=== PATIENT | female | born 1995 | race African-American/Black ===

== ENCOUNTER 2017-01-22 23:33 | Emergency (ER) | payer SELFPAY ==
[~2017-01-22] VITALS: Ht 160 cm; Wt 76.7 kg
--- OUTSIDE RECORDS SUMMARY | 2017-01-22 23:39 | XMS REPORT | Clinical Summary ---
Author Author [facility] Address Unknown Phone Unavailable Drug Allergies and Adverse Reactions SNOMED Allergy Type Code Substance Substance RxNorm code Reaction Severity Date Identified Date Resolved Status Problems SNOMED CT Problem Onset Date Ended Date Status Medications RxNorm Code Medication Began Ended Dosage Frequency Route Units Status Diagnostic Results Lab Results LOINC Code Lab Test Result Abnormal Completed Date PREG TEST URINE NEG[0] N 10/27/2016 Encounters Date [facility]STD[facility]TB Vital Signs Date Height(cm) Weight(kg) Head Circ(cm) BP-Systolic BP-Diastolic Temperature(C) Respiration Heart Beat Oxygen(%) 10/27/2016 162.56 [id number]
[2017-01-22 23:41] VITALS: BP 117/91
[2017-01-23 00:07] LABS: BASOPHILS # (AUTO) 0.1 10^3/uL (0.0-0.1); BASOPHILS % (AUTO) 1 % (0-10); EOSINOPHILS # (AUTO) 0.3 10^3/uL (0.0-0.3); EOSINOPHILS % (AUTO) 4 % (0-10); LYMPHOCYTES # (AUTO) 2.3 X 10^3 (1.0-4.0); LYMPHOCYTES % (AUTO) 37 % (12-44); MEAN CORPUSCULAR HEMOGLOBIN 28 PG (25-34); MEAN CORPUSCULAR HGB CONC 33 G/DL (32-36); MEAN CORPUSCULAR VOLUME 85 FL (80-99); MONOCYTES # (AUTO) 0.6 X 10^3 (0.0-1.0); MONOCYTES % (AUTO) 10 % (0-12); NEUTROPHILS # (AUTO) 2.9 X 10^3 (1.8-7.8); NEUTROPHILS % (AUTO) 48 % (42-75); PLATELET COUNT 348 10^3/uL (130-400); RED BLOOD COUNT 4.27 10^6/uL (4.35-5.85); RED CELL DISTRIBUTION WIDTH 12.7 % (10.0-14.5); WHITE BLOOD COUNT 6.1 10^3/uL (4.3-11.0)
[2017-01-23 00:28] LABS: ALANINE AMINOTRANSFERASE 15 U/L (0-55); ALBUMIN 3.9 GM/DL (3.2-4.5); ANION GAP 10 MMOL/L (5-14); ASPARTATE AMINO TRANSFERASE 19 U/L (5-34); BILIRUBIN,TOTAL 0.4 MG/DL (0.1-1.0); BLOOD UREA NITROGEN 11 MG/DL (7-18); BUN/CREATININE RATIO 14; CARBON DIOXIDE 21 MMOL/L (21-32); CHLORIDE 108 MMOL/L (98-107); CREATININE SERUM 0.77 MG/DL (0.60-1.30); GFR ESTIMATED > 60; GLUCOSE 90 MG/DL (70-105); POTASSIUM 3.7 MMOL/L (3.6-5.0); SODIUM 139 MMOL/L (135-145); TOTAL PROTEIN 7.1 GM/DL (6.4-8.2)
[2017-01-23] MEDS ORDERED: LACTATED RINGERS 1,000 ML IV ONE (00:33)
[2017-01-23 01:00] LABS: BILIRUBIN,URINE NEGATIVE (NEGATIVE); KETONES,URINE NEGATIVE (NEGATIVE); LEUKOCYTE ESTERASE ,URINE 2+ (NEGATIVE); NITRITE,URINE NEGATIVE (NEGATIVE); PH,URINE 7 (5-9); PROTEIN,URINE 1+ (NEGATIVE); UROBILINOGEN,URINE 1 MG/DL (NORMAL)
[2017-01-23 01:35] LABS: CREATINE KINASE 291 U/L (29-168); MAGNESIUM 1.9 MG/DL (1.8-2.4)
[2017-01-23 01:41] LABS: TROPONIN I < 0.30 NG/ML (<0.30)
[2017-01-23] MEDS ORDERED: NITR-65 PO (01:56)
--- NOTE | 2017-01-23 01:56 | ED General ---
General Chief Complaint: Dizziness/Syncope Stated Complaint: HAS PASSED OUT 4 X THIS WK,UTI Nursing Triage Note: PT TO ED 5 PER W/C FROM WAITING ROOM. UPON CALLING PT BACK, PT "COLLAPSED" INTO W/C. REPORTS SHE'S PASSED OUT MULTIPLE TIMES OVER PAST WEEK. STATED SHE WAS DX W/ A "SEVERE UTI" AT [facility] LAST WEEK ET HAS BEEN TAKING MEDS BUT DENIES IMPROVEMENT. DENIES N/V/D. Source of Information: Patient History of Present Illness Time Seen by Provider: 23:50 Initial Comments PT ARRIVES VIA POV WITH A MULTITUDE OF FRIENDS--"COLLAPSED" INTO WHEELCHAIR NURSE WENT TO GET PT FROM WAITING ROOM, BUT DID NOT HAVE ACTUAL SYNCOPE PT STATES SHE HAS "PASSED OUT" X 4 THIS WEEK--EPISODES LAST A FEW SECONDS TO A MINUTE. NO POST-ICTAL SYMPTOMS WAS SEEN AT [facility] ON Sunday01/19/17 FOR THIS COMPLAINT AND WAS DX WITH UTI AND PLACED ON UNKNOWN ANTIBIOTIC. PT IS NOT HAVING ANY UTI SYMPTOMS NO OTHER TESTS WERE DONE AT [facility]. C/O GENERALIZED WEAKNESS NO NAUSEA/VOMITING--APPETITE IS GOOD AND HAS BEEN EATING NORMALLY NO PAIN ANYWHERE NO HEADACHE NO VISION CHANGES NO INCONTINENCE WITH EPISODES NO REPORTED SEIZURE ACTIVITY WITH EPISODES PT STATES THAT A FEW SECONDS TO A FEW MINUTES BEFORE SHE PASSES OUT, SHE WILL START TO FEEL SHORT OF BREATH, WILL GET CHEST PAIN WITH BURNING IN THE LEFT SHOULDER AND UPPER ARM AREA, AND WILL HAVE NUMBNESS FROM THE KNEES DOWN. NO INJURES FROM SYNCOPAL EPISODES THESE EPISODES ARE NOT ASSOCIATED WITH ANY PARTICULAR ACTIVITY NO PRIOR HISTORY OF SIMILAR NO RECENT TRAVEL BEYOND 1 1/2 HOURS PT IS [employer] STUDENT FROM [place] AND JUST STARTED SCHOOL LMP 12/26- 12/30. QUIT TAKING OCP'S 08/2016. PERIODS HAVE BEEN 1 1/2 WEEKS LATE EVERY MONTH SINCE THEN Allergies and Home Medications Allergies Coded Allergies: No Known Drug Allergies (Unverified , 01/22/17) Home Medications Nitrofurantoin Monohyd/M-Cryst 100 Mg Capsule, 100 MG PO BID, #20 Prescribed by: BEL PHILLIPS on 01/23/17 0156 Constitutional: see HPI, No diaphoresis, dizziness, weakness EENTM: no symptoms reported Respiratory: see HPI Cardiovascular: see HPI, chest pain, syncope Gastrointestinal: no symptoms reported Genitourinary: no symptoms reported Musculoskeletal: no symptoms reported Skin: no symptoms reported Psychiatric/Neurological: See HPI, Denies Headache Hematologic/Lymphatic: No Symptoms Reported Immunological/Allergic: no symptoms reported Past Dhsfzpd-Bsxjhw-Jzwzxf Hx Patient Social History Alcohol Use: Denies Use Recreational Drug Use: No Smoking Status: Never a Smoker Recent Foreign Travel: No Contact w/Someone Who Travel: No Recent Infectious Disease Expo: No Recent Hopitalizations: No Ebola Symptoms: Denies Symptoms Listed Physical Abuse: No Sexual Abuse: No Mistreated: No Fear: No Surgeries History of Surgeries: No Respiratory History of Respiratory Disorde: No Cardiovascular History of Cardiac Disorders: No Neurological History of Neurological Disord: No Reproductive System : No Female Reproductive Disorders: Denies Genitourinary History of Genitourinary Disor: No Gastrointestinal History of Gastrointestinal Di: No Musculoskeletal History of Musculoskeletal Dis: No Endocrine History of Endocrine Disorders: Yes (WAS TOLD BY HER DR BACK HOME SHE WAS DIABETIC A CHILD BUT NO TX) HEENT History of HEENT Disorders: No Cancer History of Cancer: No Did You Recieve Any Treatments: No Psychosocial History of Psychiatric Problem: No Suicide Risk Score: 0 Integumentary History of Skin or Integumenta: No Physical Exam Vital Signs Vital Sign - Last 12Hours 01/22/17 01/23/17 23:37 02:06 Temp 97.3 Pulse 76 Resp 16 B/P (MAP) 130/94 Pulse Ox 100 O2 Delivery Room Air Capillary Refill : General Appearance: No Apparent Distress, WD/WN HEENT: PERRL/EOMI, TMs Normal, Normal ENT Inspection, Pharynx Normal Neck: Full Range of Motion, Normal Inspection, Non Tender, Supple, No Carotid Bruit, No JVD Respiratory: Normal Breath Sounds, No Accessory Muscle Use, No Respiratory Distress Cardiovascular: Regular Rate, Rhythm, No Edema, No JVD, No Murmur, Normal Peripheral Pulses Gastrointestinal: Normal Bowel Sounds, No Organomegaly, No Pulsatile Mass, Non Tender, Soft Back: Normal Inspection Extremity: Normal Capillary Refill, Normal Inspection, Normal Range of Motion, Non Tender, No Calf Tenderness, No Pedal Edema Neurologic/Psychiatric: Alert, Oriented x3, No Motor/Sensory Deficits, Normal Mood/Affect, hide salter II-XII Norm as Tested, No Abnormal Cerebellar Tests Reflexes: 2+ Bicep (R), 2+ Bicep (L), 2+ Knee (R), 2+ Knee (L) Skin: Normal Color, Warm/Dry Progress/Results/Core Measures Results/Orders Lab Results Laboratory Tests Test 01/23/17 00:01 Range/Units White Blood Count 6.1 4.3-11.0 10^3/uL Red Blood Count 4.27 L 4.35-5.85 10^6/uL Hemoglobin 12.1 11.5-16.0 G/DL Hematocrit 36 35-52 % Mean Corpuscular Volume 85 80-99 FL Mean Corpuscular Hemoglobin 28 25-34 PG Mean Corpuscular Hemoglobin Concent 33 32-36 G/DL Red Cell Distribution Width 12.7 10.0-14.5 % Platelet Count 348 130-400 10^3/uL Mean Platelet Volume 9.0 7.4-10.4 FL Neutrophils (%) (Auto) 48 42-75 % Lymphocytes (%) (Auto) 37 12-44 % Monocytes (%) (Auto) 10 0-12 % Eosinophils (%) (Auto) 4 0-10 % Basophils (%) (Auto) 1 0-10 % Neutrophils # (Auto) 2.9 1.8-7.8 X 10^3 Lymphocytes # (Auto) 2.3 1.0-4.0 X 10^3 Monocytes # (Auto) 0.6 0.0-1.0 X 10^3 Eosinophils # (Auto) 0.3 0.0-0.3 10^3/uL Basophils # (Auto) 0.1 0.0-0.1 10^3/uL D-Dimer < 0.27 0.00-0.49 UG/ML Sodium Level 139 135-145 MMOL/L Potassium Level 3.7 3.6-5.0 MMOL/L Chloride Level 108 H 98-107 MMOL/L Carbon Dioxide Level 21 21-32 MMOL/L Anion Gap 10 5-14 MMOL/L Blood Urea Nitrogen 11 7-18 MG/DL Creatinine 0.77 0.60-1.30 MG/DL Estimat Glomerular Filtration Rate > 60 BUN/Creatinine Ratio 14 Glucose Level 90 70-105 MG/DL Calcium Level 9.0 8.5-10.1 MG/DL Magnesium Level 1.9 1.8-2.4 MG/DL Total Bilirubin 0.4 0.1-1.0 MG/DL Aspartate Amino Transf (AST/SGOT) 19 5-34 U/L Alanine Aminotransferase (ALT/SGPT) 15 0-55 U/L Alkaline Phosphatase 79 40-136 U/L Total Creatine Kinase 291 H 29-168 U/L Creatine Kinase MB 0.5 <6.6 NG/ML Troponin I < 0.30 <0.30 NG/ML B-Type Natriuretic Peptide < 10.0 <100.0 PG/ML Total Protein 7.1 6.4-8.2 GM/DL Albumin 3.9 3.2-4.5 GM/DL Serum Test, Qualitative NEGATIVE NEGATIVE My Orders Orders - BEL PHILLIPS K DO Saline Lock/Iv-Start (01/22/17 23:50) Orthostatic Vital Signs (01/22/17 23:50) Monitor-Rhythm Ecg Trace Only (01/22/17 23:50) Cbc With Automated Diff (01/22/17 23:50) Comprehensive Metabolic Panel (01/22/17 23:50) Drug Screen Stat (Urine) (01/22/17 23:50) Hcg,Qualitative Serum (01/22/17 23:50) Ua Culture If Indicated (01/22/17 23:50) Saline Lock/Iv-Start (01/23/17 00:33) Lactated Ringers (Lr 1000 Ml Iv Solution (01/23/17 00:33) Urine Culture (01/22/17 00:53) BNP (01/23/17 01:16) Creatine Kinase (01/23/17 01:16) Creatine Kinase Mb (01/23/17 01:16) Fibrin Degradation Products (01/23/17 01:16) Magnesium (01/23/17 01:16) Troponin I (01/23/17 01:16) Ekg Tracing (01/23/17 01:17) Medications Given in ED Vital Signs/I&O Progress Note : Progress Note UNEVENTFUL ER STAY NO SYMPTOMS DURING ER STAY ECG Initial ECG Impression Time: 01:20 Initial ECG Rate: 76 Initial ECG Rhythm: Normal Sinus Initial ECG Comparisson: No Previous ECG Available Departure Impression Impression: Primary Impression: UTI (urinary tract infection) Additional Impressions: Generalized weakness REPORTED HISTORY OF MULTIPLE SYNCOPAL EPISODES Chest pain Disposition: HOME, SELF-CARE Condition: Stable Departure-Patient Inst. Referrals: NO,LOCAL PHYSICIAN (PCP) Primary Care Physician AYLEEN ACOSTA MD Patient Instructions: Chest Pain (DC), Syncope (Fainting) (DC), Urinary Tract Infection, Adult (DC) Add. Discharge Instructions: HOME REST NO STRENOUS ACTIVITIES LOTS OF FLUIDS FOLLOW UP WITH [facility] TOMOR[facility] FOR FURTHER CARE RETURN TO ER IF SYMPTOMS WORSEN STOP CURRENT ANTIBIOTIC All discharge instructions reviewed with patient and/or family. Voiced understanding. Scripts Nitrofurantoin Monohyd/M-Cryst (Macrobid 100 mg Capsule) 100 Mg Capsule 100 MG PO BID, #20 CAP Prov: BEL PHILLIPS DO 01/23/17 BEL PHILLIPS DO Jan 23, 2017 01:56
== END 2017-01-23 02:06 | disposition home or self-care (01) ==
LOC: EDUNIT# 23:33 → ER 23:35
DX: N39.0 Urinary tract infection, site not specified (principal); R53.1 Weakness; R55 Syncope and collapse; R07.9 Chest pain, unspecified; E11.9 Type 2 diabetes mellitus without complications
CPT/HCPCS: 36415; 80306; 81000; 82550; 82553; 83735; 83880; 84484; 85025; 85379; 87088; 93005; 96360

== ENCOUNTER 2017-02-01 21:09 | Observation (INO) | payer OTHER ==
[~2017-02-01] VITALS: Ht 162.6 cm; Wt 77.2 kg
[~2017-02-01 21:09] MED LIST: NITR-65 PO
[2017-02-01] MEDS ORDERED: LACTATED RINGERS 1,000 ML IV ONE (21:17)
[2017-02-01 21:23] LABS: BASOPHILS % (AUTO) 1 % (0-10); EOSINOPHILS % (AUTO) 6 % (0-10); LYMPHOCYTES % (AUTO) 35 % (12-44); MEAN CORPUSCULAR HEMOGLOBIN 29 PG (25-34); MEAN CORPUSCULAR HGB CONC 34 G/DL (32-36); MEAN CORPUSCULAR VOLUME 85 FL (80-99); MONOCYTES % (AUTO) 11 % (0-12); NEUTROPHILS # (AUTO) 2.8 X 10^3 (1.8-7.8); NEUTROPHILS % (AUTO) 47 % (42-75); PLATELET COUNT 357 10^3/uL (130-400); RED BLOOD COUNT 4.36 10^6/uL (4.35-5.85); RED CELL DISTRIBUTION WIDTH 12.8 % (10.0-14.5)
[2017-02-01 21:24] LABS: EOSINOPHILS # (AUTO) 0.4 10^3/uL (0.0-0.3); LYMPHOCYTES # (AUTO) 2.1 X 10^3 (1.0-4.0); MONOCYTES # (AUTO) 0.7 X 10^3 (0.0-1.0)
[2017-02-01 21:28] LABS: PROTHROMBIN TIME PATIENT 13.6 SEC (12.2-14.7)
[2017-02-01 21:36] LABS: ALANINE AMINOTRANSFERASE 11 U/L (0-55); ALBUMIN 4.1 GM/DL (3.2-4.5); ALCOHOL < 10 MG/DL (<10); AMYLASE 66 U/L (25-125); ANION GAP 9 MMOL/L (5-14); ASPARTATE AMINO TRANSFERASE 17 U/L (5-34); BILIRUBIN,TOTAL 0.4 MG/DL (0.1-1.0); BLOOD UREA NITROGEN 12 MG/DL (7-18); BUN/CREATININE RATIO 16; CALCIUM 9.3 MG/DL (8.5-10.1); CARBON DIOXIDE 20 MMOL/L (21-32); CHLORIDE 110 MMOL/L (98-107); CREATINE KINASE 135 U/L (29-168); CREATININE SERUM 0.76 MG/DL (0.60-1.30); GFR ESTIMATED > 60; GLUCOSE 91 MG/DL (70-105); POTASSIUM 3.6 MMOL/L (3.6-5.0); SODIUM 139 MMOL/L (135-145); TOTAL PROTEIN 7.6 GM/DL (6.4-8.2)
--- NOTE | 2017-02-01 21:38 | ED General ---
General Chief Complaint: Neurological Problems Stated Complaint: SEIZURE Nursing Triage Note: per EMS pt was in her dorm and had an aprox 10 min witnessed seizure by room mate. EMS reports pt was seizing upon their arrival. Pt is alert and oriented upon arrival. Pt able to move self from EMS cot to ED cot. Pt reprots cp that she has had x 1month. Pt reports she started having seizures about a month ago and is not currently taking any medication for them. Source of Information: Patient, EMS, Old Records History of Present Illness Time Seen by Provider: 21:07 Initial Comments PT ARRIVES VIA EMS FROM [employer] [facility] ( WITH ROOMMATE ACCOMPANYING HER IN THE AMBULANCE, ADDITIONALLY 8 -12 OF HER FRIENDS AT ANY ONE TIME ARE IN WAITING ROOM WELL) PT WAS DANCING AND FELT WEAK AND NUMB FROM THE KNEES DOWN AND SAT DOWN AND PASSED OUT AND BEGAN HAVING A "SEIZURE" --REPORTEDLY, LASTED 10 MINUTES EMS REPORTS SHE WAS SHAKING FOR APPROXIMATELY A MINUTE OR TWO ON THEIR ARRIVAL, AND WAS DROWSY UNTIL 2 MINUTES PRIOR TO ARRIVAL AND IS BACK TO NORMAL NOW. NO INJURY DID NOT BITE TONGUE NO INCONTINENCE NO HEADACHE NO VISION CHANGES NO PARESTHESIAS OR MOTOR DEFICITS NO NAUSEA/VOMITING NO PALPITATIONS NO SHORTNESS OF BREATH NO RECENT TRAVEL BEYOND 1 1/2 HOURS NO RECENT ILLNESS, FEVER, TICK/MOSQUITO BITES, ETC. PT IS A [employer] STUDENT FROM [place] AND JUST STARTED SCHOOL PT STATES THIS IS THE 7TH EPISODE IN THE LAST MONTH--STATES "FIRST I WAS JUST PASSING OUT AND NOW I'M STARTING TO SHAKE" PT STATES SHE HAS BEEN HAVING CONSTANT CHEST PAIN FOR THE LAST MONTH--NOTHING WORSENS OR IMPROVES PAIN, AND PAIN DOES NOT GO AWAY THESE SYMPTOMS ARE NOT ASSOCIATED WITH ANY PARTICULAR ACTIVITY PT HAS NOT HAD ANY INJURIES FROM ANY OF THESE EPISODES PT WAS SEEN HERE 01/22/17 FOR SIMILAR. AND HAD BEEN TO [facility]ICK CARE A FEW DAYS PRIOR AND DX WITH UTI, WAS PLACED ON UNKNOWN ANTIBIOTIC--SATES SHE FINISHED IT A COUPLE OF DAYS AGO--DENIES HAVING ANY SYMPTOMS OF UTI) STATES EPISODES ARE THE SAME EVERY TIME--WILL START FEELING NUMBNESS FROM THE KNEES DOWN BEFORE SHE PASSES OUT ( ON PREVIOUS VISIT 01/22/17, SHE HAD REPORTED THAT SHE WOULD FEEL SHORT OF BREATH AND THEN GET CHEST PAIN AND BURNING IN HER LEFT SHOULDER AND UPPER ARM AREA IMMEDIATELY PRIOR TO THESE EPISODES, BUT DOES NOT MENTION ANY OF THESE OTHER SYMPTOMS TONIGHT) PT STATES SHE WAS SEEN AT [facility] FOR THESE SYMPTOMS, AND WAS TOLD SHE "HAD A SLOW HEART BEAT" AND "THEY DID AN ULTRASOUND ON HER HEART" AT THE [facility] AND WAS TOLD SHE "HAD AN ABNORMALITY ON HER HEART" AND WERE GOING TO REFER HER TO SOMEONE IN [place]. LMP 12/26/16--QUIT TAKING OCP'S 08/2016 AND PERIODS HAVE BEEN 1 1/2 WEEKS LATE EVER SINCE THEN. [employer] STUDENT Allergies and Home Medications Allergies Coded Allergies: No Known Drug Allergies (Unverified , 01/22/17) Home Medications Nitrofurantoin Monohyd/M-Cryst 100 Mg Capsule, 100 MG PO BID, #20 Prescribed by: BEL PHILLIPS on 01/23/17 0156 Constitutional: see HPI EENTM: no symptoms reported Respiratory: no symptoms reported Cardiovascular: see HPI, chest pain, No edema, No palpitations, syncope, No vascular heart diseas Gastrointestinal: no symptoms reported Genitourinary: no symptoms reported : No LMP: Dec 26, 2016 Musculoskeletal: no symptoms reported Skin: no symptoms reported Psychiatric/Neurological: See HPI, Denies Headache, Denies Numbness, Denies Paresthesia, Seizure, Denies Tingling, Denies Tremors, Denies Weakness, Other ( NO POST-ICTAL SIGNS/SYMPTOMS ON ARRIVAL TO ER) Hematologic/Lymphatic: No Symptoms Reported Immunological/Allergic: no symptoms reported Past Wxlpffc-Dmapqk-Gvebgk Hx Patient Social History Alcohol Use: Denies Use Recreational Drug Use: No Smoking Status: Never a Smoker Recent Foreign Travel: No Contact w/Someone Who Travel: No Recent Infectious Disease Expo: No Recent Hopitalizations: No Physical Abuse: No Sexual Abuse: No Mistreated: No Fear: No Surgeries History of Surgeries: No Respiratory History of Respiratory Disorde: No Cardiovascular History of Cardiac Disorders: No Neurological History of Neurological Disord: No Reproductive System : No Last Menstrual Period: Dec 26, 2016 Female Reproductive Disorders: Menstrual Problems Genitourinary History of Genitourinary Disor: No Gastrointestinal History of Gastrointestinal Di: No Musculoskeletal History of Musculoskeletal Dis: No Endocrine History of Endocrine Disorders: Yes (WAS TOLD BY HER BACK HOME SHE WAS DIABETIC A CHILD BUT NO TX) HEENT History of HEENT Disorders: No Cancer History of Cancer: No Did You Recieve Any Treatments: No Psychosocial History of Psychiatric Problem: No Suicide Risk Score: 1 Integumentary History of Skin or Integumenta: No Blood Transfusions History of Blood Disorders: No Physical Exam Vital Signs Vital Sign - Last 12Hours 02/01/17 02/01/17 21:10 22:58 Temp 98.2 Pulse 79 Resp 20 B/P (MAP) 116/86 Pulse Ox 98 O2 Delivery Room Air Capillary Refill : General Appearance: No Apparent Distress, WD/WN, Other (DOES NOT APPEAR POST- ICTAL ) Eyes: Bilateral Eye Normal Inspection, Bilateral Eye PERRL, Bilateral Eye EOMI HEENT: PERRL/EOMI, TMs Normal, Normal ENT Inspection, Pharynx Normal, Other ( NO INTRA-ORAL INJURY) Neck: Full Range of Motion, Normal Inspection, Non Tender, Supple Respiratory: Chest Non Tender, Normal Breath Sounds, No Accessory Muscle Use, No Respiratory Distress Cardiovascular: Regular Rate, Rhythm, No Edema, No Gallop, No JVD, No Murmur, Normal Peripheral Pulses Gastrointestinal: Normal Bowel Sounds, No Organomegaly, No Pulsatile Mass, Non Tender, Soft Back: Normal Inspection, No CVA Tenderness, No Vertebral Tenderness Extremity: Normal Capillary Refill, Normal Inspection, Normal Range of Motion, Non Tender, No Calf Tenderness, No Pedal Edema Neurologic/Psychiatric: Alert, Oriented x3, No Motor/Sensory Deficits, Normal Mood/Affect (EXCEPT SOMEWHAT DRAMATIC. ), shirt finisher II-XII Norm as Tested, No Abnormal Cerebellar Tests Reflexes: 2+ Bicep (R), 2+ Bicep (L), 2+ Knee (R), 2+ Knee (L) Skin: Normal Color, Warm/Dry, Tattoos/Piercings (TATTOOS), Other (NO EXTERNAL EVIDENCE OF TRAUMA ANYWHERE) Progress/Results/Core Measures Results/Orders Lab Results Laboratory Tests Test 02/01/17 21:08 02/01/17 22:29 Range/Units White Blood Count 6.0 4.3-11.0 10^3/uL Red Blood Count 4.36 4.35-5.85 10^6/uL Hemoglobin 12.5 11.5-16.0 G/DL Hematocrit 37 35-52 % Mean Corpuscular Volume 85 80-99 FL Mean Corpuscular Hemoglobin 29 25-34 PG Mean Corpuscular Hemoglobin Concent 34 32-36 G/DL Red Cell Distribution Width 12.8 10.0-14.5 % Platelet Count 357 130-400 10^3/uL Mean Platelet Volume 9.0 7.4-10.4 FL Neutrophils (%) (Auto) 47 42-75 % Lymphocytes (%) (Auto) 35 12-44 % Monocytes (%) (Auto) 11 0-12 % Eosinophils (%) (Auto) 6 0-10 % Basophils (%) (Auto) 1 0-10 % Neutrophils # (Auto) 2.8 1.8-7.8 X 10^3 Lymphocytes # (Auto) 2.1 1.0-4.0 X 10^3 Monocytes # (Auto) 0.7 0.0-1.0 X 10^3 Eosinophils # (Auto) 0.4 H 0.0-0.3 10^3/uL Basophils # (Auto) 0.0 0.0-0.1 10^3/uL Prothrombin Time 13.6 12.2-14.7 SEC INR Comment 1.0 0.8-1.4 Activated Partial Thromboplast Time 24 24-35 SEC Sodium Level 139 135-145 MMOL/L Potassium Level 3.6 3.6-5.0 MMOL/L Chloride Level 110 H 98-107 MMOL/L Carbon Dioxide Level 20 L 21-32 MMOL/L Anion Gap 9 5-14 MMOL/L Blood Urea Nitrogen 12 7-18 MG/DL Creatinine 0.76 0.60-1.30 MG/DL Estimat Glomerular Filtration Rate > 60 BUN/Creatinine Ratio 16 Glucose Level 91 70-105 MG/DL Calcium Level 9.3 8.5-10.1 MG/DL Magnesium Level 2.0 1.8-2.4 MG/DL Total Bilirubin 0.4 0.1-1.0 MG/DL Aspartate Amino Transf (AST/SGOT) 17 5-34 U/L Alanine Aminotransferase (ALT/SGPT) 11 0-55 U/L Alkaline Phosphatase 85 40-136 U/L Total Creatine Kinase 135 29-168 U/L Creatine Kinase MB 0.4 <6.6 NG/ML Troponin I < 0.30 <0.30 NG/ML Total Protein 7.6 6.4-8.2 GM/DL Albumin 4.1 3.2-4.5 GM/DL Amylase Level 66 25-125 U/L TSH [place] Testing 0.68 0.35-4.94 UIU/ML Serum Test, Qualitative NEGATIVE NEGATIVE Acetaminophen Level < 10 L 10-30 UG/ML Serum Alcohol < 10 <10 MG/DL Urine Color YELLOW Urine Clarity SLIGHTLY CLOUDY Urine pH 6 5-9 Urine Specific Lena 1.025 H 1.016-1.022 Urine Protein 2+ H NEGATIVE Urine Glucose (UA) NEGATIVE NEGATIVE Urine Ketones NEGATIVE NEGATIVE Urine Nitrite NEGATIVE NEGATIVE Urine Bilirubin NEGATIVE NEGATIVE Urine Urobilinogen NORMAL NORMAL MG/DL Urine Leukocyte Esterase 3+ H NEGATIVE Urine RBC (Auto) NEGATIVE NEGATIVE Urine RBC NONE /HPF Urine WBC 10-25 H /HPF Urine Squamous Epithelial Cells 5-10 /HPF Urine Crystals NONE /LPF Urine Bacteria MODERATE H /HPF Urine Casts NONE /LPF Urine Mucus MODERATE H /LPF Urine Culture Indicated YES Urine Opiates Screen NEGATIVE NEGATIVE Urine Oxycodone Screen NEGATIVE NEGATIVE Urine Methadone Screen NEGATIVE NEGATIVE Urine Propoxyphene Screen NEGATIVE NEGATIVE Urine Barbiturates Screen NEGATIVE NEGATIVE Ur Tricyclic Antidepressants Screen NEGATIVE NEGATIVE Urine Phencyclidine Screen NEGATIVE NEGATIVE Urine Amphetamines Screen NEGATIVE NEGATIVE Urine Methamphetamines Screen NEGATIVE NEGATIVE Urine Benzodiazepines Screen NEGATIVE NEGATIVE Urine Cocaine Screen NEGATIVE NEGATIVE Urine Cannabinoids Screen NEGATIVE NEGATIVE My Orders Orders - JACQUELINE,BEL K DO Accucheck Stat ONCE (02/01/17 21:17) Saline Lock/Iv-Start (02/01/17 21:17) Ekg Tracing (02/01/17 21:17) Monitor-Rhythm Ecg Trace Only (02/01/17 21:17) Ct Head Wo (02/01/17 21:17) Acetaminophen (02/01/17 21:17) Alcohol (02/01/17 21:17) Amylase (02/01/17 21:17) Cbc With Automated Diff (02/01/17 21:17) Comprehensive Metabolic Panel (02/01/17 21:17) Creatine Kinase (02/01/17 21:17) Creatine Kinase Mb (02/01/17 21:17) Drug Screen Stat (Urine) (02/01/17 21:17) Hcg,Qualitative Serum (02/01/17 21:17) Magnesium (02/01/17 21:17) Protime With Inr (02/01/17 21:17) Partial Thromboplastin Time (02/01/17 21:17) Thyroid Analyzer (02/01/17 21:17) Troponin I (02/01/17 21:17) Ua Culture If Indicated (02/01/17 21:17) Chest 1 View, Ap/Pa Only (02/01/17 21:17) Saline Lock/Iv-Start (02/01/17 21:17) Lactated Ringers (Lr 1000 Ml Iv Solution (02/01/17 21:17) Urine Culture (02/01/17 22:29) Medications Given in ED Current Medications Medications Dose Ordered Sig/Baldo Route Start Time Stop Time Status Last Admin Dose Admin Lactated Ringer's 1,000 ml @ 0 mls/hr Q0M ONCE IV 02/01/17 21:17 02/01/17 21:19 DC 02/01/17 21:26 0 MLS/HR Vital Signs/I&O Vital Sign - Last 12Hours 02/01/17 02/01/17 21:10 22:58 Temp 98.2 Pulse 79 72 Resp 20 18 B/P (MAP) 116/86 Pulse Ox 98 O2 Delivery Room Air Intake and Output 02/02/17 00:00 Intake Total 200 ml Balance 200 ml Progress Note : Progress Note UNEVENTFUL ER STAY ECG Initial ECG Impression Time: 21:20 Initial ECG Rate: 74 Initial ECG Rhythm: Normal Sinus Initial ECG Impression: Normal Initial ECG Comparisson: No Previous ECG Available Diagnostic Imaging Comments CT HEAD--NO ACUTE PROCESS, PER RADIOLOGIST REPORT @ 2219 CXR--NO ACUTE PROCESS, PER RADIOLOGIST REPORT @ 2304 Reviewed: Reviewed by Me Departure Communication (Admissions) Progress Notes 2204--SPOKE WITH DR. COELLO, ACCEPTS PT FOR ADMIT Impression Impression: Primary Impression: SEIZURE VS SYNCOPE Additional Impressions: Chest pain UTI (urinary tract infection) Disposition: ADMITTED INPATIENT Condition: Stable Admissions Decision to Admit Reason: Admit from ER (General) Decision to Admit/Date: Feb 01, 2017 Time/Decision to Admit Time: 22:05 Departure-Patient Inst. Referrals: NO,LOCAL PHYSICIAN (PCP/Family) Primary Care Physician BEL PHILLIPS DO Feb 01, 2017 21:38
[2017-02-01 21:39] LABS: ACETAMINOPHEN < 10 UG/ML (10-30)
[2017-02-01 21:55] LABS: TROPONIN I < 0.30 NG/ML (<0.30)
--- NOTE | 2017-02-01 22:11 | Diagnostic Imaging Report ---
PROCEDURE: CT head without contrast. TECHNIQUE: Multiple contiguous axial images were obtained through the brain without the use of intravenous contrast. INDICATION: 21-year-old female presents with seizure COMPARISONS: None FINDINGS: Midline structures are not displaced. Lateral, third, and fourth ventricles are normal in size, shape and anatomic position. There is no evidence of mass, mass effect, hydrocephalus or hemorrhage. Mobley-white differentiation is normal. There is no sulcal effacement. There are no abnormal extra-axial fluid collections or hemorrhage. Basilar cisterns appear normal. Sinuses, orbits and mastoid air cells are normal. Bone windows show no calvarial changes. IMPRESSION: Unremarkable nonenhanced CT brain. Given the patient's symptomatology, perhaps an MRI may be of further value. Dictated by: Dictated on workstation # [id number]
--- NOTE | 2017-02-01 22:22 | Diagnostic Imaging Report ---
INDICATION: 21-year-old female with seizure activity COMPARISON: None FINDINGS: Single view of the chest shows normal heart, pulmonary vasculature, pleura and diaphragms with no focal opacities. Soft tissues and bony thorax are normal. IMPRESSION: No acute cardiopulmonary changes. Dictated by: Dictated on workstation # [id number]
[2017-02-01 22:36] LABS: BILIRUBIN,URINE NEGATIVE (NEGATIVE); KETONES,URINE NEGATIVE (NEGATIVE); LEUKOCYTE ESTERASE ,URINE 3+ (NEGATIVE); NITRITE,URINE NEGATIVE (NEGATIVE); PH,URINE 6 (5-9); PROTEIN,URINE 2+ (NEGATIVE); UROBILINOGEN,URINE NORMAL (NORMAL)
[2017-02-01 23:40] VITALS: BP 112/83
[2017-02-02] VITALS (18 sets, daily range): BP systolic 96–126; BP diastolic 63–91
[2017-02-02] MEDS ORDERED: LACTATED RINGERS 1,000 ML IV ONE (00:17)
[2017-02-02] MEDS ORDERED: LACTATED RINGERS 1,000 ML IV SCH (00:30)
[2017-02-02] MEDS: LACTATED RINGERS 1,000 ML IV SCH ×2 (00:44→07:19)
[2017-02-02] MEDS ORDERED: LEVOFLOXACIN 500 MG TAB (LEVAQUIN) ONE (00:52)
[2017-02-02] MEDS ORDERED: LORazepam INJ 2 MG/ML (ATIVAN) VIAL IVP PRN (01:00)
[2017-02-02 04:08] LABS: BASOPHILS % (AUTO) 1 % (0-10); EOSINOPHILS # (AUTO) 0.4 10^3/uL (0.0-0.3); EOSINOPHILS % (AUTO) 5 % (0-10); LYMPHOCYTES # (AUTO) 2.6 X 10^3 (1.0-4.0); LYMPHOCYTES % (AUTO) 39 % (12-44); MEAN CORPUSCULAR HEMOGLOBIN 29 PG (25-34); MEAN CORPUSCULAR HGB CONC 34 G/DL (32-36); MEAN CORPUSCULAR VOLUME 85 FL (80-99); MEAN PLATELET VOLUME 9.5 FL (7.4-10.4); MONOCYTES # (AUTO) 0.5 X 10^3 (0.0-1.0); MONOCYTES % (AUTO) 7 % (0-12); NEUTROPHILS # (AUTO) 3.3 X 10^3 (1.8-7.8); NEUTROPHILS % (AUTO) 49 % (42-75); PLATELET COUNT 339 10^3/uL (130-400); RED BLOOD COUNT 4.01 10^6/uL (4.35-5.85); RED CELL DISTRIBUTION WIDTH 12.8 % (10.0-14.5); WHITE BLOOD COUNT 6.8 10^3/uL (4.3-11.0)
[2017-02-02 04:24] LABS: ALANINE AMINOTRANSFERASE 10 U/L (0-55); ALBUMIN 3.5 GM/DL (3.2-4.5); ANION GAP 10 MMOL/L (5-14); ASPARTATE AMINO TRANSFERASE 14 U/L (5-34); BILIRUBIN,TOTAL 0.6 MG/DL (0.1-1.0); BLOOD UREA NITROGEN 10 MG/DL (7-18); BUN/CREATININE RATIO 15; CALCIUM 8.7 MG/DL (8.5-10.1); CARBON DIOXIDE 19 MMOL/L (21-32); CHLORIDE 109 MMOL/L (98-107); CREATININE SERUM 0.68 MG/DL (0.60-1.30); GFR ESTIMATED > 60; GLUCOSE 86 MG/DL (70-105); MAGNESIUM 1.7 MG/DL (1.8-2.4); PHOSPHORUS 3.8 MG/DL (2.3-4.7); POTASSIUM 3.5 MMOL/L (3.6-5.0); SODIUM 138 MMOL/L (135-145); TOTAL PROTEIN 6.5 GM/DL (6.4-8.2)
--- NOTE | 2017-02-02 09:03 | History & Physical-Hospitalist ---
HPI History of Present Illness: HPI/Chief Complaint 21 YO BF WITH 1 MONTH HX OF EPISODES OF LEGS GOING NUMB THEN SYNCOPE. ASSOCIATED WITH CP. NO PREVIOUS SIMILAR HX. STARTED SCHOOL HERE at [employer] last year but gives a history of just starting. Also gave a history of being seen at the [facility] but was not. Has not been seen seen last semester and described episodes of shaking and near syncope at that time. Source: patient, old records Exam Limitations: no limitations Date Seen 02/02/17 Time Seen by Provider: 09:00 Attending Physician Ashley Acosta MD PCP No,Local Physician Referring Physician DAVE Date of Admission Feb 01, 2017 at 10:47 pm Home Medications & Allergies Home Medications Reviewed patient Home Medication Reconciliation Form Allergies Allergies Coded Allergies No Known Drug Allergies (Unverified01/22/17) Past Lzkjqkn-Sedpjz-Zwxvgy Hx Patient Social History Marrital Status: single Employed/Student: student, full-time Alcohol Use: Denies Use Recreational Drug Use: No Smoking Status: Never a Smoker Physical Abuse Screen: No Sexual Abuse: No Recent Foreign Travel: No Contact w/other who traveled: No Recent Hopitalizations: No Recent Infectious Disease Expo: No Seasonal Allergies Seasonal Allergies: Yes Surgeries No Respiratory No Cardiovascular No Neurological No Reproductive System : No Last Menstrual Period: Dec 26, 2016 Female Reproductive Disorders: Menstrual Problems Genitourinary No Gastrointestinal No Musculoskeletal No Endocrine History of Endocrine Disorders: Yes (WAS TOLD BY HER DR BACK HOME SHE WAS DIABETIC A CHILD BUT NO TX) HEENT History of HEENT Disorders: No Cancer No Did You Recieve Any Treatments: No Psychosocial History of Psychiatric Problem: No Integumentary History of Skin or Integumenta: No Blood Transfusions History of Blood Disorders: No Family Medical History Significant Family History: No Pertinent Family Hx Family Hx: Cardiovascular disease 19 MOTHER Diabetes mellitus 19 MOTHER Hypertension 19 MOTHER Review of Systems Constitutional: no symptoms reported EENTM: no symptoms reported Respiratory: no symptoms reported Cardiovascular: chest pain Gastrointestinal: no symptoms reported Genitourinary: frequency Musculoskeletal: muscle twitching Skin: no symptoms reported Psychiatric/Neurological: Numbness, Paresthesia (lower legs), Tingling Physical Exam Physical Exam Vital Signs Vital Sign - Last 12Hours 02/01/17 02/01/17 21:10 22:58 Temp 98.2 Pulse 79 Resp 20 B/P (MAP) 116/86 Pulse Ox 98 O2 Delivery Room Air Capillary Refill : General Appearance: No Apparent Distress, WD/WN Respiratory: Lungs Clear, Normal Breath Sounds, No Accessory Muscle Use, No Respiratory Distress Cardiovascular: Regular Rate, Rhythm, No Gallop, No Murmur Gastrointestinal: Non Tender, Soft Extremity: Non Tender, No Calf Tenderness Neurologic/Psychiatric: Alert, Oriented x3, No Motor/Sensory Deficits, Normal Mood/Affect, Other (gait and neuro exam normal per nursing) Skin: Warm/Dry Results Results/Procedures Lab Laboratory Tests 02/01/17 21:08 02/02/17 03:20 Assessment/Plan Admission Diagnosis 1. Possible new onset seizures 2.CP - 3.syncope Plan - EEG, Echo, d-dimer Copy Copies To 1: ASHLEY ACOSTA MD Clinical Quality Measures DVT/VTE Risk/Contraindication: RFS Level Per Nursing on Admit: 0=No Risk/No VTE PPX ASHLEY ACOSTA MD Feb 02, 2017 09:03
[2017-02-02] MEDS ORDERED: KCL 20 MEQ TAB (K-DUR) PO NR (09:12)
[2017-02-02] MEDS: MAGNESIUM 1 GM/100 ML IVPB 100 ML IV SCH ×2 (10:32→11:49)
[2017-02-02] MEDS ORDERED: LEVOFLOXACIN 500 MG TAB (LEVAQUIN) PO SCH (11:00)
--- NOTE | 2017-02-02 11:19 | Consultation-Cardiology ---
HPI-Cardiology Cardiology Consultation: Date of Consultation 02/02/17 Time Seen by Provider: 09:30 Date of Admission 02-01-17 Attending Physician Ashley Gillespie MD Admitting Physician Lorin,Local Physician Consulting Physician Michelle Yi MD HPI: Chief Complaint: Syncope Ms. See is a 21 year old female admitted to ICU 4 from the ED. She is a [employer] student. Her family lives in [place]. She reports for approx the last month she has been having passing out episodes with seizure activity for the last month. She states the episodes can occur when standing or even with walking. She reports she begins to feel weak in her feet and the sensation moves up her legs. She reports she gets a warm feeling and then she "passes out " the most recent episode was yesterday in her dorm room. She reports her room mate was present. She states that she was walking in her room when she felt the "seizure" come on. She reports after she collapsed she had a period of shaking and trembling which lasted for approx 10 minutes. No loss of bowel or bladder with any of the episodes. She reports she does have a UTI and has been on abx for the last week. She also reports that sometimes she has sharp stabbing pains in her mid-sternal region, right lateral or left lateral chest. They last for a few seconds. They are not related to physical activity or emotional stress. She currently denies any CP, dyspnea or palpitations. Review of Systems-Cardiology Review of Systems Constitutional: As described under HPI Eyes: No blindness, No blurred vision, No contact lenses, No drainage, No decreased acuity, No foreign body sensation, No pain, No vision change Ears/Nose/Throat: No chronic hearing loss, No ear discharge, No ear pain, No nasal drainage, No ulcerations Respiratory: As described under HPI Cardiovascular: As described under HPI Gastrointestinal: No abdomen distended, No abdominal pain, No blood streaked bowels, No constipation, No diarrhea, No nausea, No vomiting, No stool coloration changes Genitourinary: No burning, No dysuria, No discharge, No frequency, No flank pain, No hematuria, No urgency : No LMP: Dec 26, 2016 Skin: No rash, No skin related problems, No ulcerations Psychiatric/Neurological: As described under HPI, No anxiety, No depression, No seizure, No focal weakness, No syncope Hematologic: No bleeding abnormalities FAJ-Sdigos-Emesuw Hx Patient Social History Marrital Status: single Employed/Student: student, full-time Alcohol Use: Denies Use Recreational Drug Use: No Smoking Status: Never a Smoker Recent Foreign Travel: No Recent Infectious Disease Expo: No Physical Abuse Screen: No Sexual Abuse: No Past Medical History PMH As described under Assessment. Family Medical History Family Medical History: She reports her mother has DM, HTN and CAD. She reports her mother had an WI in her 30's with several stents placed since then. Family History: Cardiovascular disease 19 MOTHER Diabetes mellitus 19 MOTHER Hypertension 19 MOTHER Allergies and Home Medications Allergies Coded Allergies: No Known Drug Allergies (Unverified , 01/22/17) Home Medications No Active Prescriptions or Reported Meds Physical Exam-Cardiology Physical Exam Vital Signs/I&O Vital Sign - Last 12Hours 02/02/17 02/02/17 02/02/17 02/02/17 04:00 04:00 04:00 05:00 Temp 98.8 Pulse 66 66 Resp 13 16 B/P (MAP) 111/80 110/68 Pulse Ox 99 97 O2 Delivery Room Air Room Air Room Air 02/02/17 02/02/17 02/02/17 02/02/17 06:00 07:00 07:00 08:00 Temp 97.6 Pulse 61 70 50 69 Resp 22 22 17 B/P (MAP) 96/77 110/72 110/70 Pulse Ox 97 98 98 O2 Delivery Room Air Room Air Room Air 02/02/17 02/02/17 02/02/17 02/02/17 08:00 09:00 10:00 11:00 Pulse 72 79 79 Resp 20 13 17 B/P (MAP) 104/67 112/82 121/74 Pulse Ox 98 98 99 O2 Delivery Room Air Room Air Room Air Room Air 02/02/17 02/02/17 02/02/17 02/02/17 11:48 12:00 12:00 13:00 Temp 97.8 Pulse 89 Resp 22 B/P (MAP) 126/86 122/83 (96) 112/80 (91) 119/91 (100) Pulse Ox 99 O2 Delivery Room Air Room Air Intake and Output 02/03/17 00:00 Intake Total 150 ml Balance 150 ml Capillary Refill : Constitutional: appears stated age, No apparent distress, well-developed, well- nourished HEENT: PERRL, No discharge, hearing is well preserved, oral hygience is good, No ulceration, No xanthelasmas are seen Neck: No carotid bruit, carotid pulses are 2 + bilaterally Respiratory: No accessory muscle use, No respiratory distress, lungs clear to percussion, lungs clear to auscultation Cardiovascular: regular rate-rhythm, No JVD, S1 and S2 Gastrointestinal: No tender, soft, round, No spleenomegaly Extremities: No clubbing, No cyanosis, No significant edema Neurologic/Psychiatric: alert, oriented x 3, power is 5/5 both on sides Skin: No rash, No ulcerations Data Review Labs Laboratory Tests 02/01/17 21:08: White Blood Count 6.0, Red Blood Count 4.36, Hemoglobin 12.5, Hematocrit 37, Mean Corpuscular Volume 85, Mean Corpuscular Hemoglobin 29, Mean Corpuscular Hemoglobin Concent 34, Red Cell Distribution Width 12.8, Platelet Count 357, Mean Platelet Volume 9.0, Neutrophils (%) (Auto) 47, Lymphocytes (%) (Auto) 35, Monocytes (%) (Auto) 11, Eosinophils (%) (Auto) 6, Basophils (%) (Auto) 1, Neutrophils # (Auto) 2.8, Lymphocytes # (Auto) 2.1, Monocytes # (Auto) 0.7, Eosinophils # (Auto) 0.4H, Basophils # (Auto) 0.0, Prothrombin Time 13.6, INR Comment 1.0, Activated Partial Thromboplast Time 24, Sodium Level 139, Potassium Level 3.6, Chloride Level 110H, Carbon Dioxide Level 20L, Anion Gap 9 , Blood Urea Nitrogen 12, Creatinine 0.76, Estimat Glomerular Filtration Rate > 60, BUN/Creatinine Ratio 16, Glucose Level 91, Calcium Level 9.3, Magnesium Level 2.0, Total Bilirubin 0.4, Aspartate Amino Transf (AST/SGOT) 17, Alanine Aminotransferase (ALT/SGPT) 11, Alkaline Phosphatase 85, Total Creatine Kinase 135, Creatine Kinase MB 0.4, Troponin I < 0.30, Total Protein 7.6, Albumin 4.1, Amylase Level 66, TSH Rains Testing 0.68, Serum Test, Qualitative NEGATIVE, Acetaminophen Level < 10L, Serum Alcohol < 10 02/01/17 22:29: Urine Color YELLOW, Urine Clarity SLIGHTLY CLOUDY, Urine pH 6, Urine Specific [place] 1.025H, Urine Protein 2+H, Urine Glucose (UA) NEGATIVE, Urine Ketones NEGATIVE, Urine Nitrite NEGATIVE, Urine Bilirubin NEGATIVE, Urine Urobilinogen NORMAL, Urine Leukocyte Esterase 3+H, Urine RBC (Auto) NEGATIVE, Urine RBC NONE , Urine WBC 10-25H, Urine Squamous Epithelial Cells 5-10, Urine Crystals NONE, Urine Bacteria MODERATEH, Urine Casts NONE, Urine Mucus MODERATEH, Urine Culture Indicated YES, Urine Opiates Screen NEGATIVE, Urine Oxycodone Screen NEGATIVE, Urine Methadone Screen NEGATIVE, Urine Propoxyphene Screen NEGATIVE, Urine Barbiturates Screen NEGATIVE, Ur Tricyclic Antidepressants Screen NEGATIVE , Urine Phencyclidine Screen NEGATIVE, Urine Amphetamines Screen NEGATIVE, Urine Methamphetamines Screen NEGATIVE, Urine Benzodiazepines Screen NEGATIVE, Urine Cocaine Screen NEGATIVE, Urine Cannabinoids Screen NEGATIVE 02/02/17 03:20: White Blood Count 6.8, Red Blood Count 4.01L, Hemoglobin 11.6, Hematocrit 34L, Mean Corpuscular Volume 85, Mean Corpuscular Hemoglobin 29, Mean Corpuscular Hemoglobin Concent 34, Red Cell Distribution Width 12.8, Platelet Count 339, Mean Platelet Volume 9.5, Neutrophils (%) (Auto) 49, Lymphocytes (%) (Auto) 39, Monocytes (%) (Auto) 7, Eosinophils (%) (Auto) 5, Basophils (%) (Auto) 1, Neutrophils # (Auto) 3.3, Lymphocytes # (Auto) 2.6, Monocytes # (Auto) 0.5, Eosinophils # (Auto) 0.4H, Basophils # (Auto) 0.0, Sodium Level 138, Potassium Level 3.5L, Chloride Level 109H, Carbon Dioxide Level 19L, Anion Gap 10, Blood Urea Nitrogen 10, Creatinine 0.68, Estimat Glomerular Filtration Rate > 60, BUN/ Creatinine Ratio 15, Glucose Level 86, Calcium Level 8.7, Magnesium Level 1.7L, Total Bilirubin 0.6, Aspartate Amino Transf (AST/SGOT) 14, Alanine Aminotransferase (ALT/SGPT) 10, Alkaline Phosphatase 76, Troponin I < 0.30, Total Protein 6.5, Albumin 3.5, D-Dimer < 0.27, Phosphorus Level 3.8 02/02/17 03:50: Total Creatine Kinase 120 Microbiology 02/01/17 Urine Culture - Preliminary, Resulted Radiology NAME: ZEB SEE [facility] REC#: [id number] PT STATUS: REG ER : 1995 PHYSICIAN: BEL PHILLIPS DO ADMIT DATE: 02/01/17/ER Signed Date of Exam: 02/01/17 CT HEAD WO PROCEDURE: CT head without contrast. TECHNIQUE: Multiple contiguous axial images were obtained through the brain without the use of intravenous contrast. INDICATION: 21-year-old female presents with seizure COMPARISONS: None FINDINGS: Midline structures are not displaced. Lateral, third, and fourth ventricles are normal in size, shape and anatomic position. There is no evidence of mass, mass effect, hydrocephalus or hemorrhage. Mobley-white differentiation is normal. There is no sulcal effacement. There are no abnormal extra-axial fluid collections or hemorrhage. Basilar cisterns appear normal. Sinuses, orbits and mastoid air cells are normal. Bone windows show no calvarial changes. IMPRESSION: Unremarkable nonenhanced CT brain. Given the patient's symptomatology, perhaps an MRI may be of further value. Dictated by: Dictated on workstation # [id number] Dict: 02/01/172205 Trans: 02/01/172218 Interpreted by: HERNÁN RICHMOND MD Electronically signed by: HERNÁN RICHMOND MD 02/01/172218 ECG Impression ECG Initial ECG Rhythm: Normal Sinus A/P-Cardiology Assessment/Admission Diagnosis Syncope/seizures of undetermined etiology, likely non-cardiac; neurocardiogenic syncope also seems unlikely Echo of 02/02/17 showed LVEF 60-65%, no significant valvular heart disease, normal PASP Reports dx of DM approx 3 years ago with no f/u (glucose levels on lab here have been WNL) Reports family h/o CAD (mother with WI in her late 30's) UTI - medical services managing TSH 0.68 (lab 02-01-17) Electrolyte abnormalities of undetermined etiology Discussion and Recomendations Syncope with seizure like activity of undetermined etiology. Does not appear neuro-cardiogenic by description. She is a poor historian and her description of events have varied from her ED visit to her interview by me this morning. Nevertheless, for questionable seizures she is to have an EEG and this is being managed by Dr. Gillespie. UTI management per Dr. Gillespie. Questionable DM, we will defer further work up to medical services. We advise ortho v/s to be done. Replace electrolytes. We do advise she stay hydrated and to not stand for any prolonged period of time. We advise she not drive, operate heavy machinery, climb ladders or participate in any activity which may cause harm to herself or others. We would like to thank the medical services for this consult. Further recommendations will be based on her hospital course. This consult is being scribed by Jennifer De La Cruz APRN on behalf of Dr. Yi after discussion regarding plan of care. Clinical Quality Measures DVT/VTE Risk/Contraindication: RFS Level Per Nursing on Admit: 0=No Risk/No VTE PPX Physician Assessment Physician Assessment Has had one witnessed (by her nurse) in the hosp. Occurred at rest and consisted to mild shaking for a few seconds. Episode that she is admitted with was an episode of shaking that her roommate walked into and witnessed for 10 min before resolution Lungs: clear Cor: reg Ext: no c/c/e A&R * As documented in our note above that I update (italics) and as noted below * Echo is normal * No arrhythmia is seen * History is not consistent with neurocardiogenic either * I discussed her case with Dr Gillespie * I also spoke with the patient and answered CV-related questions JAMEY DE LA CRUZ Feb 02, 2017 11:19 MICHELLE YI MD [facility] Feb 02, 2017 15:53
[2017-02-02] MEDS: IBUPROFEN TABLET 200 MG TAB PO PRN ×2 (12:41→22:26)
--- NOTE | 2017-02-02 15:52 | Progress Note-Hospitalist ---
Subjective HPI/CC On Admission Time Seen by Provider: 16:00 21 YO BF WITH 1 MONTH HX OF EPISODES OF LEGS GOING NUMB THEN SYNCOPE. ASSOCIATED WITH CP. NO PREVIOUS SIMILAR HX. STARTED SCHOOL HERE at [employer] last year but gives a history of just starting. Also [facility] a [facility]. Has not been seen since last semester and described episodes of shaking and near syncope at that time. Subjective/Events-last exam pt had episode os shaking and loss of conciousness today most c/w partial complex seizure that generalizes. Discussed with familly- EEG tonight then start Nadeem d/c in am on Nadeem- F/U with me at [place] - we will refer to neurology Objective Exam Vital Signs Vital Sign - Last 12Hours 02/01/17 02/01/17 21:10 22:58 Temp 98.2 Pulse 79 Resp 20 B/P (MAP) 116/86 Pulse Ox 98 O2 Delivery Room Air Capillary Refill : General Appearance: No Apparent Distress, WD/WN Respiratory: Lungs Clear Cardiovascular: Regular Rate, Rhythm Results/Procedures Lab Laboratory Tests 02/01/17 21:08 02/02/17 03:20 Assessment/Plan Assessment and Plan Assess & Plan/Chief Complaint 1. Seizures- EEG , Start chintan Silver/c AYLEEN Raphael MD Feb 02, 2017 15:52
[2017-02-02] MEDS ORDERED: LEVE500T6 PO (15:54)
[2017-02-02] MEDS ORDERED: CATHETER FLUSH 10 ML SYR IV PRN (16:30)
[2017-02-02] MEDS ORDERED: LEVETIRACETAM INJECTION 1,000 MG in NS (IVPB) 100 ML IV SCH (20:00)
[2017-02-02] MEDS: CATHETER FLUSH 10 ML SYR IV SCH (22:44)
[2017-02-03 00:59] VITALS: BP 110/74
[2017-02-03 05:05] LABS: BASOPHILS # (AUTO) 0.1 10^3/uL (0.0-0.1); BASOPHILS % (AUTO) 1 % (0-10); EOSINOPHILS # (AUTO) 0.3 10^3/uL (0.0-0.3); EOSINOPHILS % (AUTO) 5 % (0-10); LYMPHOCYTES # (AUTO) 2.6 X 10^3 (1.0-4.0); LYMPHOCYTES % (AUTO) 40 % (12-44); MEAN CORPUSCULAR HEMOGLOBIN 29 PG (25-34); MEAN CORPUSCULAR HGB CONC 34 G/DL (32-36); MEAN CORPUSCULAR VOLUME 86 FL (80-99); MEAN PLATELET VOLUME 9.4 FL (7.4-10.4); MONOCYTES # (AUTO) 0.6 X 10^3 (0.0-1.0); MONOCYTES % (AUTO) 9 % (0-12); NEUTROPHILS % (AUTO) 46 % (42-75); PLATELET COUNT 351 10^3/uL (130-400); RED CELL DISTRIBUTION WIDTH 13.1 % (10.0-14.5); WHITE BLOOD COUNT 6.5 10^3/uL (4.3-11.0)
[2017-02-03 05:22] LABS: ANION GAP 8 MMOL/L (5-14); BLOOD UREA NITROGEN 12 MG/DL (7-18); BUN/CREATININE RATIO 16; CALCIUM 8.9 MG/DL (8.5-10.1); CARBON DIOXIDE 21 MMOL/L (21-32); CHLORIDE 111 MMOL/L (98-107); CREATININE SERUM 0.77 MG/DL (0.60-1.30); GFR ESTIMATED > 60; GLUCOSE 95 MG/DL (70-105); MAGNESIUM 2.2 MG/DL (1.8-2.4); PHOSPHORUS 4.9 MG/DL (2.3-4.7); POTASSIUM 3.6 MMOL/L (3.6-5.0); SODIUM 140 MMOL/L (135-145)
[2017-02-03 07:26] VITALS: BP 102/57
[2017-02-03 08:00] VITALS: BP 112/70
[2017-02-03] MEDS: LEVETIRACETAM 500 MG (KEPPRA) TAB PO SCH ×2 (09:29→20:53)
[2017-02-03] MEDS: CATHETER FLUSH 10 ML SYR IV SCH ×3 (09:30→22:08)
--- NOTE | 2017-02-03 09:30 | Diagnostic Imaging Report ---
INDICATION: Seizure versus syncope and chest pain Frontal chest obtained at 4:53 a.m. Heart and mediastinal silhouette are normal in appearance. The lungs are clear. There is no pneumothorax or pleural fluid. IMPRESSION: Negative chest. No change from 02/01/17. Dictated by: Dictated on workstation # [id number]
[2017-02-03] MEDS ORDERED: LEVOFLOXACIN 500 MG TAB (LEVAQUIN) PO SCH (11:00)
[2017-02-03 12:00] VITALS: BP 112/73
[2017-02-03] MEDS ORDERED: predniSONE 10 MG TAB PO ONE (12:30)
[2017-02-03] MEDS ORDERED: D5 LR IV SOLUTION 1,000 ML IV ONE (12:30)
[2017-02-03] MEDS ORDERED: LACTATED RINGERS 1,000 ML IV ONE ×2 (13:00→15:45)
--- NOTE | 2017-02-03 14:06 | Progress Note-Cardiology ---
Cardiology SOAP Progress Note Subjective: Had dizziness and nausea and vomiting this am Denies cp or palp or syncope Objective: I&O/Vital Signs Vital Sign - Last 12Hours 02/03/17 02/03/17 02/03/17 02/03/17 04:00 07:00 07:26 08:00 Temp 96.9 97.7 Pulse 67 85 82 Resp 20 18 B/P (MAP) 102/57 112/70 Pulse Ox 98 99 O2 Delivery Room Air Room Air Room Air 02/03/17 02/03/17 08:00 12:00 Temp 97.6 Pulse 75 Resp 18 B/P (MAP) 112/73 Pulse Ox 99 O2 Delivery Room Air Room Air Weight (Pounds): 169 Weight (Ounces): 4.0 Weight (Calculated Kilograms): 76.850326 Constitutional: appears stated age, No apparent distress, well-developed, well- nourished Respiratory: No accessory muscle use, No respiratory distress, lungs clear to percussion, lungs clear to auscultation Cardiovascular: regular rate-rhythm, No JVD, S1 and S2 Gastrointestional: No tender, soft, round, No spleenomegaly Extremities: No clubbing, No cyanosis, No significant edema Neurologic/Psychiatric: alert, oriented x 3, power is 5/5 both on sides Skin: No rash, No ulcerations Results/Procedures: Labs Laboratory Tests 02/03/17 04:18: White Blood Count 6.5, Red Blood Count 4.10L, Hemoglobin 11.8, Hematocrit 35, Mean Corpuscular Volume 86, Mean Corpuscular Hemoglobin 29, Mean Corpuscular Hemoglobin Concent 34, Red Cell Distribution Width 13.1, Platelet Count 351, Mean Platelet Volume 9.4, Neutrophils (%) (Auto) 46, Lymphocytes (%) (Auto) 40, Monocytes (%) (Auto) 9, Eosinophils (%) (Auto) 5, Basophils (%) (Auto) 1, Neutrophils # (Auto) 3.0, Lymphocytes # (Auto) 2.6, Monocytes # (Auto) 0.6, Eosinophils # (Auto) 0.3, Basophils # (Auto) 0.1, Sodium Level 140, Potassium Level 3.6, Chloride Level 111H, Carbon Dioxide Level 21, Anion Gap 8, Blood Urea Nitrogen 12, Creatinine 0.77, Estimat Glomerular Filtration Rate > 60, BUN/ Creatinine Ratio 16, Glucose Level 95, Calcium Level 8.9, Phosphorus Level 4.9H , Magnesium Level 2.2 Microbiology 02/01/17 Urine Culture - Final, Complete Laboratory Tests 02/01/17 21:08 02/02/17 03:20 02/03/17 04:18 A/P: Assessment: Syncope/seizures of undetermined etiology, likely non-cardiac; neurocardiogenic syncope also seems unlikely No orthostatic hypotension demonstrated during this hospitalization Echo of 02/02/17 showed LVEF 60-65%, no significant valvular heart disease, normal PASP Reports dx of DM approx 3 years ago with no f/u (glucose levels on lab here have been WNL) UTI - medical services managing TSH 0.68 (lab 02-01-17) Mild elec abn, probably related to N/V that are being treated by the Med Svce Plan: We have recommended good hydration We have recommended outpatient f/u I discussed her case with Dr Gillespie yesterday JAYRO GREGORY MD FACP FAC CCDS Feb 03, 2017 14:05
[2017-02-03] MEDS ORDERED: meTOprolol TARTRATE 50 MG (LOPRESSOR) TAB PO NR (14:10)
--- NOTE | 2017-02-03 14:21 | Progress Note-Hospitalist ---
Subjective HPI/CC On Admission Date Seen by Provider: Feb 03, 2017 Time Seen by Provider: 08:30 21 YO BF WITH 1 MONTH HX OF EPISODES OF LEGS GOING NUMB THEN SYNCOPE. ASSOCIATED WITH CP. NO PREVIOUS SIMILAR HX. STARTED SCHOOL HERE at [employer] last year but gives a history of just starting. Also gave a history of being [facility] but was not. Has not been seen since last semester and described episodes of shaking and near syncope at that time. Subjective/Events-last exam Was feeling well this morning with no syncope seizure activity or evidence for arrhythmias being noted on telemetry. When her nurse got her up to walk again however she felt weak in the legs her heart rate had been in the 70s by the time the nurse got her back to bed and her heart rate was 120 and regular sinus tachycardia on the monitor. By the time her blood pressure could be taken she was lying in bed and reportedly normotensive in the 110 systolic range and her heart rate slowly came down with resolution of symptoms. She did not have any reported tonic-clonic activity or altered mental status. Objective Exam Vital Signs Vital Sign - Last 12Hours 02/01/17 02/01/17 21:10 22:58 Temp 98.2 Pulse 79 Resp 20 B/P (MAP) 116/86 Pulse Ox 98 O2 Delivery Room Air Capillary Refill : General Appearance: No Apparent Distress, WD/WN Respiratory: Chest Non Tender, Lungs Clear, Normal Breath Sounds, No Accessory Muscle Use, No Respiratory Distress Cardiovascular: Regular Rate, Rhythm, No Edema, No Gallop, No JVD, No Murmur, Normal Peripheral Pulses Gastrointestinal: Normal Bowel Sounds, No Organomegaly, No Pulsatile Mass, Non Tender, Soft Neurologic/Psychiatric: Alert, Oriented x3, No Motor/Sensory Deficits, Normal Mood/Affect Results/Procedures Lab Laboratory Tests 02/03/17 04:18 Assessment/Plan Assessment and Plan Assess & Plan/Chief Complaint 1. Suspect orthostatic hypotension with what the nurse describes today with her heart rate being up postural orthostatic tachycardia syndrome is clearly in the differential. Her electrolytes presenting with mild hypokalemia make Johnson's disease less likely but will send off a cortisol level and ACTH. She has been advised to push fluids and increased salt intake. Give 1 dose of metoprolol IR 50 mg 1 now attempt ambulation after the evening meal and patient is doing better consider discharge this evening to follow-up Dr. Acosta 2. EEG pending as seizure disorder cannot be ruled out although considering today symptoms suspect hypotension induced myoclonus more likely. Copy Copies To 1: AYLEEN ACOSTA MD, MARK D MD Feb 03, 2017 14:20
[2017-02-03 17:00] VITALS: BP 105/65
[2017-02-03 20:00] VITALS: BP 103/69
[2017-02-04] VITALS: BP 106/68
[2017-02-04 04:00] VITALS: BP 110/71
[2017-02-04 04:45] LABS: BASOPHILS % (AUTO) 0 % (0-10); EOSINOPHILS # (AUTO) 0.1 10^3/uL (0.0-0.3); EOSINOPHILS % (AUTO) 1 % (0-10); LYMPHOCYTES # (AUTO) 2.3 X 10^3 (1.0-4.0); LYMPHOCYTES % (AUTO) 26 % (12-44); MEAN CORPUSCULAR HEMOGLOBIN 29 PG (25-34); MEAN CORPUSCULAR HGB CONC 34 G/DL (32-36); MEAN CORPUSCULAR VOLUME 85 FL (80-99); MEAN PLATELET VOLUME 9.4 FL (7.4-10.4); MONOCYTES # (AUTO) 0.6 X 10^3 (0.0-1.0); MONOCYTES % (AUTO) 7 % (0-12); NEUTROPHILS # (AUTO) 5.7 X 10^3 (1.8-7.8); NEUTROPHILS % (AUTO) 65 % (42-75); PLATELET COUNT 365 10^3/uL (130-400); RED BLOOD COUNT 4.38 10^6/uL (4.35-5.85); RED CELL DISTRIBUTION WIDTH 12.8 % (10.0-14.5); WHITE BLOOD COUNT 8.7 10^3/uL (4.3-11.0)
[2017-02-04 05:05] LABS: ANION GAP 12 MMOL/L (5-14); BLOOD UREA NITROGEN 11 MG/DL (7-18); BUN/CREATININE RATIO 15; CALCIUM 9.5 MG/DL (8.5-10.1); CARBON DIOXIDE 18 MMOL/L (21-32); CHLORIDE 108 MMOL/L (98-107); CREATININE SERUM 0.74 MG/DL (0.60-1.30); GFR ESTIMATED > 60; GLUCOSE 82 MG/DL (70-105); MAGNESIUM 1.9 MG/DL (1.8-2.4); PHOSPHORUS 4.4 MG/DL (2.3-4.7); POTASSIUM 3.8 MMOL/L (3.6-5.0); SODIUM 138 MMOL/L (135-145)
[2017-02-04] MEDS: CATHETER FLUSH 10 ML SYR IV SCH (06:17)
[2017-02-04] MEDS ORDERED: meTOprolol TARTRATE 50 MG (LOPRESSOR) TAB PO NR (07:49)
[2017-02-04 08:22] VITALS: BP 100/62
[2017-02-04] MEDS ORDERED: METO-370 PO (08:37)
--- NOTE | 2017-02-04 08:46 | Discharge Summary-Hospitalist ---
Diagnosis/Chief Complaint Date of Admission Feb 01, 2017 at 23:40 Date of Discharge Discharge Date: Feb 03, 2017 Discharge Time: 1000 Admission Diagnosis 1. Possible new onset seizures 2.CP - 3.syncope Plan - EEG, Echo, d-dimer Discharge Diagnosis 1. syncope 2. Myoclonus secondary to number 1. Discharge Summary Discharge Physical Examination Allergies: Coded Allergies: No Known Drug Allergies (Unverified , 01/22/17) Vitals & I&Os Vital Signs Date Time Temp Pulse Resp B/P (MAP) Pulse Ox O2 Delivery O2 Flow Rate FiO2 02/04/17 08:22 98.6 82 14 100/62 98 Room Air Hospital Course the patient is a 21-year-old white female admitted after syncopal episode more myoclonus observed. There was no evidence for loss of bowel or bladder control with no reported postictal type symptoms. Neuro imaging was unremarkable. She did have pyuria and bacteriuria was given several doses of Levaquin. Keppra was empirically started. UA revealed several different gram-positive organisms felt to be most likely contaminant no specifics reported. The patient denied dysuria or increased urinary frequency. Discharge had been planned for the but the patient during ambulation noted the onset of legs feeling weak without numbness. She did feel as though she was going to pass out. Her nurse was able to help her back to bed where she noted sinus tachycardia heart rate as high as the 120 range. Lying back in bed, blood pressure was taken was not low. Her heart rate slowly returned. She is not been documented to have a significant orthostatic drop in her blood pressure but considering the above scenario pots syndrome(postural orthostatic tachycardia syndrome) is in the differential. We did send off a cortisol level and ACTH and an EEG was obtained and pending at the time of this discharge. As her symptoms only happen when she is standing with unremarkable neuro imaging I have opted not to send her home on Keppra. She has received 2 doses of metoprolol IR and we'll discharge her on 50 mg of metoprolol XL daily. Discussed the importance of hydration advised try to get 5-6 glasses of water in per day and increasing salt intake as well. Patient has an appointment this coming Sunday Dr. Gillespie at the [facility]. I discussed the importance that she lie down if she feels symptoms are recurring. She does not drive was of advised to avoid ladder's or any other circumstances were fall would put her at significant health risks. Labs (last 24 hrs) Laboratory Tests 02/03/17 14:14: 02/04/17 04:10: White Blood Count 8.7, Red Blood Count 4.38, Hemoglobin 12.5, Hematocrit 37, Mean Corpuscular Volume 85, Mean Corpuscular Hemoglobin 29, Mean Corpuscular Hemoglobin Concent 34, Red Cell Distribution Width 12.8, Platelet Count 365, Mean Platelet Volume 9.4, Neutrophils (%) (Auto) 65, Lymphocytes (%) (Auto) 26, Monocytes (%) (Auto) 7, Eosinophils (%) (Auto) 1, Basophils (%) (Auto) 0, Neutrophils # (Auto) 5.7, Lymphocytes # (Auto) 2.3, Monocytes # (Auto) 0.6, Eosinophils # (Auto) 0.1, Basophils # (Auto) 0.0, Sodium Level 138, Potassium Level 3.8, Chloride Level 108H, Carbon Dioxide Level 18L, Anion Gap 12, Blood Urea Nitrogen 11, Creatinine 0.74, Estimat Glomerular Filtration Rate > 60, BUN/ Creatinine Ratio 15, Glucose Level 82, Calcium Level 9.5, Phosphorus Level 4.4, Magnesium Level 1.9 Microbiology 02/01/17 Urine Culture - Final, Complete Pending Labs Laboratory Tests 02/04/17 04:10: White Blood Count 8.7, Red Blood Count 4.38, Hemoglobin 12.5, Hematocrit 37, Mean Corpuscular Volume 85, Mean Corpuscular Hemoglobin 29, Mean Corpuscular Hemoglobin Concent 34, Red Cell Distribution Width 12.8, Platelet Count 365, Mean Platelet Volume 9.4, Neutrophils (%) (Auto) 65, Lymphocytes (%) (Auto) 26, Monocytes (%) (Auto) 7, Eosinophils (%) (Auto) 1, Basophils (%) (Auto) 0, Neutrophils # (Auto) 5.7, Lymphocytes # (Auto) 2.3, Monocytes # (Auto) 0.6, Eosinophils # (Auto) 0.1, Basophils # (Auto) 0.0, Sodium Level 138, Potassium Level 3.8, Chloride Level 108, Carbon Dioxide Level 18, Anion Gap 12, Blood Urea Nitrogen 11, Creatinine 0.74, Estimat Glomerular Filtration Rate > 60, BUN/ Creatinine Ratio 15, Glucose Level 82, Calcium Level 9.5, Phosphorus Level 4.4, Magnesium Level 1.9 Discharge Home Medications: Active Scripts Active Metoprolol Succinate 50 Mg Tab.er.24h 50 Mg PO DAILY 30 Days Instructions to patient/family Please see electronic discharge instructions given to patient. Clinical Quality Measures DVT/VTE Risk/Contraindication: RFS Level Per Nursing on Admit: 0=No Risk/No VTE PPX ERICK GARCIA MD Feb 04, 2017 08:46
--- NOTE | 2017-02-19 09:20 | ELECTROENCEPHALOPATHY REPORT ---
DATE OF SERVICE: 02/02/2017 Pt name: Esa ID # [id number] DOS: 02/02/2017 The patient is a 21-year-old female who has been having fainting spells for the past 5-6 weeks and 2-3 times weekly. As the patient reports, she feels suddenly her energy and strength drains out of her body and she feels tired and weak after event. The background rhythm consisted of 10 hertz, 50-100 microvolts in amplitude bilaterally symmetrical over the vertex region which was reactive to eye opening. Intermixed was no epileptiform activity, some movement muscle artifacts were present. The patient was awake, drowsy and asleep during this recording. Hyperventilation was not performed. Intermittent photic stimulation was done at various flash frequencies and a mild photic driving response was noted. IMPRESSION: This EEG is within normal limits in awake and sleep states. No clear epileptiform activity is seen. A normal EEG does not exclude the diagnosis of seizure or epilepsy. Job ID: [id number] DocumentID: [id number] Dictated Date: 02/08/2017 15:47:55 Cigar Brander Date: 02/08/2017 16:32:22 Dictated By: OLIMPIA CHOI MD
== END 2017-02-04 10:58 | disposition home or self-care (01) ==
LOC: ER 21:09 → EDUNIT# 21:09 → ICU 22:47 → UNDOADMOB 22:47 → ICU 23:40
PROVIDERS: ADMIT Internal Medicine; ATTEND Internal Medicine
DX: R55 Syncope and collapse (principal); G25.3 Myoclonus; R07.89 Other chest pain; N39.0 Urinary tract infection, site not specified
CPT/HCPCS: 36415; 70450; 71010; 80048; 80053; 80306; 80320; 80329; 81000; 82024; 82150; 82533; 82550; 82553; 83735; 84100; 84443; 84484; 84703; 85025; 85379; 85610; 85730; 87088; 93005; 93041; 93306; 95819; 96360

== ENCOUNTER 2017-02-07 20:06 | Emergency (ER) | payer OTHER ==
[~2017-02-07] VITALS: Ht 162.6 cm; Wt 77.2 kg
[~2017-02-07 20:06] MED LIST changes: +LEVE500T6 PO; +METO-370 PO
[2017-02-07] MEDS ORDERED: LEVE500T6 (20:13)
--- NOTE | 2017-02-07 20:20 | ED Neurological Problem ---
General Chief Complaint: Neurological Problems Stated Complaint: SEIZURE Nursing Triage Note: c/o seizures Source: patient, EMS Exam Limitations: clinical condition History of Present Illness Time seen by provider: 20:11 Initial Comments Patient reports the ER by EMS with a chief complaint that she was having a seizure lasting about 10 minutes tonight. This is her fourth one today. She was seen a week ago and brought in by EMS for new onset seizures and was started on Keppra but because she did not have any money she did not product picker the Keppra until yesterday when she went to [facility]. Her last dose was this morning 500 mg. She's had some nausea off and on as well as some chest pain for the last 2 weeks. The pain is reproducible on deep inspiration or pressing on her chest. Her last menstrual period was sometime in December and she's had sex in December. She is not on any other medications and does not have any other medical history or a history of family epilepsy. She denies tobacco, alcohol or recreational drug use. Patient denies that she bit her tongue had incontinence or has any headache. She is postictal per EMS. She had an aura prior to the seizure of tingling bilateral knees and below. Old records indicate that the patient was seen at [facility] for the symptoms and told she had a slow heartbeat and given an echocardiogram and told she had an abnormality on her heart. They were going to refer her to someone in [place]. She is been off her oral contraceptives since August 2016. History and physical indicates that [facility] has not seen her since sometime in the last semester when she was describing some episodes of shaking and near- syncope at that time. She says that her doctor told her she was diabetic when she was a child but has never received any treatment for this. The discharge plan from her most recent admission indicates that neuro imaging was normal and they are still pending ACTH and EEG. They did not feel that seizures explain her symptoms because they only occurred when she was standing and they considered things like POTS. Instead of Keppra they had discharged her on metoprolol 50 mg succinate. Labs from last week reviewed and found to be fairly normal. The UA grew out mixed cielo as well as lactobacilli both times on the as well as January 22. Allergies and Home Medications Allergies Coded Allergies: No Known Drug Allergies (Unverified , 01/22/17) Home Medications Levetiracetam 500 Mg Tablet, (Reported) Metoprolol Succinate 50 Mg Tab.er.24h, 50 MG PO DAILY for 30 Days, #30 Prescribed by: ERICK GARCIA on 02/04/17 0837 Constitutional: No chills, No diaphoresis Eyes: Denies Blindness, Denies Blurred Vision Ears, Nose, Mouth, Throat: denies ear pain, denies ear discharge Respiratory: No cough, No short of breath Cardiovascular: see HPI, chest pain Gastrointestinal: No constipation, No diarrhea, No nausea Genitourinary: No discharge, No dysuria Musculoskeletal: No back pain, No joint pain Skin: No pruritus, No rash Psychiatric/Neurological: See HPI, Denies Headache, Numbness Past Uazoofb-Gzcrcg-Qmakoz Hx Patient Social History Alcohol Use: Denies Use Recreational Drug Use: No Smoking Status: Never a Smoker Type Used: Cigarettes Recent Foreign Travel: No Contact w/Someone Who Travel: No Recent Infectious Disease Expo: No Recent Hopitalizations: No Ebola Symptoms: Denies Symptoms Listed Seasonal Allergies Seasonal Allergies: Yes Surgeries History of Surgeries: No Respiratory History of Respiratory Disorde: No Cardiovascular History of Cardiac Disorders: No Neurological History of Neurological Disord: Yes Neurological Disorders: Seizure Disorder Reproductive System Female Reproductive Disorders: Menstrual Problems Genitourinary History of Genitourinary Disor: No Gastrointestinal History of Gastrointestinal Di: No Musculoskeletal History of Musculoskeletal Dis: No Endocrine History of Endocrine Disorders: Yes (WAS TOLD BY HER DR BACK HOME SHE WAS DIABETIC A CHILD BUT NO TX) HEENT History of HEENT Disorders: No Cancer History of Cancer: No Did You Recieve Any Treatments: No Psychosocial History of Psychiatric Problem: No Integumentary History of Skin or Integumenta: No Blood Transfusions History of Blood Disorders: No Family Medical History Significant Family History: No Pertinent Family Hx Family Medial History: Cardiovascular disease 19 MOTHER Diabetes mellitus 19 MOTHER Hypertension 19 MOTHER Physical Exam Vital Signs Vital Sign - Last 12Hours 02/07/17 20:10 Temp 98.2 Pulse 82 Resp 18 B/P (MAP) 115/75 Capillary Refill : General Appearance: WD/WN, no apparent distress HEENT: PERRL/EOMI, TMs normal, pharynx normal Neck: non-tender, supple, normal inspection Respiratory: chest non-tender, lungs clear, normal breath sounds Cardiovascular: normal peripheral pulses, regular rate, rhythm, no murmur Peripheral Pulses: 2+ Dorsalis Pedis (R), 2+ Left Dors-Pedis (L), 2+ Radial Pulses (R), 2+ Radial Pulses (L) Gastrointestinal: normal bowel sounds, non tender, soft Extremities: non-tender, normal inspection, no pedal edema, normal capillary refill Neurologic/Psychiatric: alert, oriented x 3, other (mildly slowed mentation) Crainal Nerves: normal hearing, normal speech, PERRL Coordination/Gait: normal finger to nose, normal gait Motor/Sensory: no motor deficit, no sensory deficit, no pronator drift, negative Babinski's sign Skin: normal color, warm/dry Progress/Results/Core Measures Results/Orders Lab Results Laboratory Tests Test 02/07/17 20:15 02/07/17 20:20 Range/Units White Blood Count 6.2 4.3-11.0 10^3/uL Red Blood Count 4.43 4.35-5.85 10^6/uL Hemoglobin 12.7 11.5-16.0 G/DL Hematocrit 37 35-52 % Mean Corpuscular Volume 84 80-99 FL Mean Corpuscular Hemoglobin 29 25-34 PG Mean Corpuscular Hemoglobin Concent 34 32-36 G/DL Red Cell Distribution Width 13.1 10.0-14.5 % Platelet Count 388 130-400 10^3/uL Mean Platelet Volume 9.0 7.4-10.4 FL Neutrophils (%) (Auto) 49 42-75 % Lymphocytes (%) (Auto) 39 12-44 % Monocytes (%) (Auto) 9 0-12 % Eosinophils (%) (Auto) 3 0-10 % Basophils (%) (Auto) 1 0-10 % Neutrophils # (Auto) 3.0 1.8-7.8 X 10^3 Lymphocytes # (Auto) 2.4 1.0-4.0 X 10^3 Monocytes # (Auto) 0.5 0.0-1.0 X 10^3 Eosinophils # (Auto) 0.2 0.0-0.3 10^3/uL Basophils # (Auto) 0.1 0.0-0.1 10^3/uL Sodium Level 138 135-145 MMOL/L Potassium Level 3.6 3.6-5.0 MMOL/L Chloride Level 109 H 98-107 MMOL/L Carbon Dioxide Level 22 21-32 MMOL/L Anion Gap 7 5-14 MMOL/L Blood Urea Nitrogen 11 7-18 MG/DL Creatinine 0.79 0.60-1.30 MG/DL Estimat Glomerular Filtration Rate > 60 BUN/Creatinine Ratio 14 Glucose Level 92 70-105 MG/DL Calcium Level 8.8 8.5-10.1 MG/DL Magnesium Level 2.0 1.8-2.4 MG/DL Total Bilirubin 0.4 0.1-1.0 MG/DL Aspartate Amino Transf (AST/SGOT) 18 5-34 U/L Alanine Aminotransferase (ALT/SGPT) 13 0-55 U/L Alkaline Phosphatase 71 40-136 U/L Total Protein 7.5 6.4-8.2 GM/DL Albumin 4.0 3.2-4.5 GM/DL Urine Color EMILIA H Urine Clarity VERY CLOUDY H Urine pH 5 5-9 Urine Specific [place] 1.025 H 1.016-1.022 Urine Protein 2+ H NEGATIVE Urine Glucose (UA) NEGATIVE NEGATIVE Urine Ketones NEGATIVE NEGATIVE Urine Nitrite NEGATIVE NEGATIVE Urine Bilirubin 1+ H NEGATIVE Urine Urobilinogen 1 NORMAL MG/DL Urine Leukocyte Esterase 3+ H NEGATIVE Urine RBC (Auto) NEGATIVE NEGATIVE Urine RBC NONE /HPF Urine WBC 10-25 H /HPF Urine Squamous Epithelial Cells 2-5 /HPF Urine Crystals NONE /LPF Urine Bacteria FEW H /HPF Urine Casts NONE /LPF Urine Mucus LARGE H /LPF Urine Culture Indicated YES Urine Opiates Screen NEGATIVE NEGATIVE Urine Oxycodone Screen NEGATIVE NEGATIVE Urine Methadone Screen NEGATIVE NEGATIVE Urine Propoxyphene Screen NEGATIVE NEGATIVE Urine Barbiturates Screen NEGATIVE NEGATIVE Ur Tricyclic Antidepressants Screen NEGATIVE NEGATIVE Urine Phencyclidine Screen NEGATIVE NEGATIVE Urine Amphetamines Screen NEGATIVE NEGATIVE Urine Methamphetamines Screen NEGATIVE NEGATIVE Urine Benzodiazepines Screen NEGATIVE NEGATIVE Urine Cocaine Screen NEGATIVE NEGATIVE Urine Cannabinoids Screen NEGATIVE NEGATIVE My Orders Orders - HARRY BURLESON Cbc With Automated Diff (02/07/17 20:13) Comprehensive Metabolic Panel (02/07/17 20:13) Drug Screen Stat (Urine) (02/07/17 20:13) Magnesium (02/07/17 20:13) Ua Culture If Indicated (02/07/17 20:13) Chest 1 View, Ap/Pa Only (02/07/17 20:13) Urine Bedside (02/07/17 20:13) Urine Culture (02/07/17 20:20) Orthostatic Vital Signs (02/07/17 21:25) Vital Signs/I&O Vital Sign - Last 12Hours 02/07/17 02/07/17 02/07/17 02/07/17 20:10 22:42 22:43 22:44 Temp 98.2 Pulse 82 82 88 87 Resp 18 B/P (MAP) 115/75 Progress Note : Time: 21:41 Progress Note The patient's last 2 urine cultures grew out contaminants and the patient is completely asymptomatic for UTI so I feel comfortable in a gnawing this and following the culture. She has recently been treated with Macrobid in the last 2 weeks. Her orthostatic vital signs were unremarkable and her heart rate did not show any elevation which is what we would expect if this was postural orthostatic tachycardia syndrome, pots. Discussed at length the need to establish care with a primary care physician who can follow all of her tests and information and get her point in the right direction for therapeutic outcome to her symptoms. Patient has expressed frustration with the lack of improvement despite taking the medication for one day. Diagnostic Imaging Diagonstic Imaging: Xray Plain Films/CT/US/NM/MRI: chest Comments No acute cardiopulmonary processes noted. NAME: ZEB SANCHES MED REC#: [id number] PHYSICIAN: HARRY BURLESON MD CC: AMOR FRAIRE; HARRY BURLESON Page 1 of 1 RADIOLOGY REPORT [place]IA [place], [place] CC: AMOR FRAIRE; HARRY BURLESON Page 1 of 1 RADIOLOGY REPORT NAME: ZEB SANCHES MED REC#: [id number] PT STATUS: REG ER : 1995 PHYSICIAN: HARRY BURLESON MD ADMIT DATE: 02/07/17/ER Signed Date of Exam: 02/07/17 CHEST 1 VIEW, AP/PA ONLY INDICATION: Chest pain. COMPARISON: 02/03/17. EXAMINATION: Single view of the chest was obtained. FINDINGS: Clear lungs, bilaterally. The heart is normal. No pneumothorax. The osseous structures are normal. IMPRESSION: Negative chest. Dictated by: Dictated on workstation # [id number] Dict: 02/07/172026 Trans: 02/07/172037 Interpreted by: AMOR FRAIRE Electronically signed by: AMOR FRAIRE 02/07/172037 Reviewed: Reviewed by Me Consults Consults : Consults Notes [facility] August,. 2114; called again at 2145 to follow up and she is just getting ready to call the triage nurse. 2305 told back and they don't have a read or evidence that the EEG was done there. Departure Impression Impression: Primary Impression: Seizure-like activity Disposition: HOME, SELF-CARE Condition: Stable Departure-Patient Inst. Decision time for Depature: 23:14 Referrals: NO,LOCAL PHYSICIAN (PCP/Family) Primary Care Physician Patient Instructions: Seizures, Adult (DC), Syncope (Fainting) (DC) Add. Discharge Instructions: Please keep your follow-up appointment with Dr. Gillespie tomorrow afternoon at 1 :45 PM. Discussed the neuroimaging and EEG results and decide what the next step in your workup is based on those results. If you have seizures people around you should be advised to time how long the seizure lasts and keep you safe by lowering due to the floor and not placing anything around or near your mouth. If you begin to have vomiting you should be rolled over to your side to allow the vomit freely leave your mouth. Do not stick anything in seizing persons mouth. All discharge instructions reviewed with patient and/or family. Voiced understanding. Copy Copies To 1: AYLEEN GILLESPIE MD, TITUS J Feb 07, 2017 20:20
[2017-02-07 20:22] LABS: BASOPHILS # (AUTO) 0.1 10^3/uL (0.0-0.1); BASOPHILS % (AUTO) 1 % (0-10); EOSINOPHILS # (AUTO) 0.2 10^3/uL (0.0-0.3); EOSINOPHILS % (AUTO) 3 % (0-10); LYMPHOCYTES # (AUTO) 2.4 X 10^3 (1.0-4.0); LYMPHOCYTES % (AUTO) 39 % (12-44); MEAN CORPUSCULAR HEMOGLOBIN 29 PG (25-34); MEAN CORPUSCULAR HGB CONC 34 G/DL (32-36); MEAN CORPUSCULAR VOLUME 84 FL (80-99); MONOCYTES # (AUTO) 0.5 X 10^3 (0.0-1.0); MONOCYTES % (AUTO) 9 % (0-12); NEUTROPHILS % (AUTO) 49 % (42-75); PLATELET COUNT 388 10^3/uL (130-400); RED BLOOD COUNT 4.43 10^6/uL (4.35-5.85); RED CELL DISTRIBUTION WIDTH 13.1 % (10.0-14.5); WHITE BLOOD COUNT 6.2 10^3/uL (4.3-11.0)
[2017-02-07 20:25] LABS: KETONES,URINE NEGATIVE (NEGATIVE); LEUKOCYTE ESTERASE ,URINE 3+ (NEGATIVE); NITRITE,URINE NEGATIVE (NEGATIVE); PH,URINE 5 (5-9); PROTEIN,URINE 2+ (NEGATIVE); UROBILINOGEN,URINE 1 MG/DL (NORMAL)
--- NOTE | 2017-02-07 20:30 | Diagnostic Imaging Report ---
INDICATION: Chest pain. COMPARISON: 02/03/17. EXAMINATION: Single view of the chest was obtained. FINDINGS: Clear lungs, bilaterally. The heart is normal. No pneumothorax. The osseous structures are normal. IMPRESSION: Negative chest. Dictated by: Dictated on workstation # [id number]
[2017-02-07 20:42] LABS: BILIRUBIN,URINE 1+ (NEGATIVE)
[2017-02-07 20:42] LABS: ALANINE AMINOTRANSFERASE 13 U/L (0-55); ANION GAP 7 MMOL/L (5-14); ASPARTATE AMINO TRANSFERASE 18 U/L (5-34); BILIRUBIN,TOTAL 0.4 MG/DL (0.1-1.0); BLOOD UREA NITROGEN 11 MG/DL (7-18); BUN/CREATININE RATIO 14; CALCIUM 8.8 MG/DL (8.5-10.1); CARBON DIOXIDE 22 MMOL/L (21-32); CHLORIDE 109 MMOL/L (98-107); CREATININE SERUM 0.79 MG/DL (0.60-1.30); GFR ESTIMATED > 60; GLUCOSE 92 MG/DL (70-105); POTASSIUM 3.6 MMOL/L (3.6-5.0); SODIUM 138 MMOL/L (135-145); TOTAL PROTEIN 7.5 GM/DL (6.4-8.2)
[2017-02-07 23:23] VITALS: BP 105/66
== END 2017-02-07 23:18 | disposition home or self-care (01) ==
LOC: EDUNIT# 20:06 → ER 20:07
DX: E11.9 Type 2 diabetes mellitus without complications; G40.909 Epilepsy, unspecified, not intractable, without status epilepticus; R25.8 Other abnormal involuntary movements
CPT/HCPCS: 36415; 71010; 80053; 80306; 81000; 83735; 84703; 85025; 87088; 99283